=== PATIENT | female | born 1985 | race Caucasian/White ===

== ENCOUNTER 2016-04-17 09:31 | Emergency (ER) | payer MEDICAID ==
[~2016-04-17] VITALS: Wt 121.0 kg
[~2016-04-17 09:31] MED LIST: CEPH-443 PO; GUAI118L94 PO; HYDR-906 PO; IBUP-1542 PO; LORA-186 PO; ONDA4TAB8 PO; PREN-39 PO; RANI150T9 PO; SIME80TA PO; SODI44SP11 NASAL
[2016-04-17 09:44] VITALS: Wt 121.0 kg
[2016-04-17] MEDS ORDERED: D-ME473S18 PO (09:48)
--- NOTE | 2016-04-17 10:22 | ERD ---
DATE OF SERVICE: HISTORY OF PRESENT ILLNESS: The patient is a 30-year-old female coming in complaining of a dry coug h for 1 week. The patient has positive sick contacts at home, her family has similar symptoms. No fevers, no pleuritic chest pain, no hemoptysis, no leg swelling. She is not taking medications for her symptoms. Has a mild runny nose, no sore throat. PAST MEDICAL HISTORY: Denies medical problems. ALLERGIES, MEDICATIONS: Denies SURGICAL HISTORY: . SOCIAL HISTORY: Denies. REVIEW OF SYSTEMS: A 12-point review of systems was done. Refer to HPI for positives, all other sy stems negative. PHYSICAL EXAMINATION VITAL SIGNS: Temperature 98.4, pulse 101, blood pressure is 117/92, respiratory 18, O2 saturation 9 8% on room air. Pain intensity is 0/10. GENERAL: The patient is well-appearing, well-nourished, no acute distress. CHEST: Clear to auscultation bilaterally. There are no rales, wheezes or rhonchi. HEART: Regular rate and rhythm. No murmurs, clicks, rubs or gallops. No S3 or S4. HEENT: Atraumatic. Conjunctivae are pink. Pupils equal, round, and reactive to light. There is no s cleral icterus. Tympanic membranes clear bilaterally. Oropharynx clear. No nystagmus or photophobia . ABDOMEN: Soft, nontender and nondistended. Good bowel sounds. No rebound or guarding. No gross calixto tonitis. No gross organomegaly or masses. No Guthrie sign or McBurney point tenderness. SKIN: There is no apparent rash or petechia. The skin is warm and dry. BACK: No midline or flank tenderness. DIAGNOSIS: Cough, likely viral. MEDICAL DECISION MAKING: I have low suspicion for pneumonia as patient's breath sounds are within n ormal limits. The patient's vital signs are stable. The patient is nontoxic appearing. Low suspic ion for pneumonia as patient has breath sounds heard in all lung oconnor. The patient is not complai suzanna of shortness of breath. I have low suspicion for PE. The patient does not have pleuritic ches t pain, no risk factors and the exam is nonconcerning. I did not feel there was indication for bloo d work or imaging. I did not feel there was indication for antibiotic treatment. The patient likel y has viral etiology. DISCHARGE: The patient is discharged stable. The patient given prescription for promethazine and t old to follow up with primary care within 1 to 2 days for reevaluation. The patient was told if sym ptoms progress or worsen to return to the ER. All other questions answered at time of discharge. D ischarge summary given at the time of departure. The patient understood and complied with plan. Dictated By: SHEKHAR PICHARDO PA for MAIDA VELEZ/SUZETTE Conf#: [id number] DID#: [id number]
== END 2016-04-17 10:06 | disposition home or self-care (01) ==
LOC: FTE 09:31
DX: R05 Cough (principal)
CPT/HCPCS: 99283

== ENCOUNTER 2016-09-15 17:29 | Emergency (ER) | payer MEDICAID ==
[~2016-09-15] VITALS: Ht 160 cm; Wt 160.5 kg
[~2016-09-15 17:29] MED LIST changes: +D-ME473S18 PO
[2016-09-15 17:34] VITALS: Ht 160 cm; Wt 160.5 kg
--- NOTE | 2016-09-15 18:24 | ERA ---
ER Documentation Chief Complaint Date/Time DATE: 09/15/16 TIME: 18:19 Chief Complaint AP X 3 DAYS HPI This is a morbidly obese 30-year-old female presenting with a chief complaint of suprapubic pain 3 days. Patient never had symptoms like this before. Patient denies any previous urinary tract infections. Patient denies fevers, back pain, flank pain, hematuria, dysuria, foul odor, vaginal discharge, sexual partners or taking any medications to relieve the pain. Patient denies any alleviating/aggravating factors. Describes no other associated manifestations. Medical conditions include history of hypertension. Patient is also complaining of a "right lump looking thing on the side of my stuff". Patient is referring to her vaginal area where she was pointing and describes a red, tender area that is roughly the size of a golf ball. Patient denies any sexual activity, discharge, aggravating/relieving factors, or similar symptoms in the past. Patient denies recent travel, change in medications, recent antibiotics, recent hospitalization, diarrhea, constipation. Vaccination status is up-to-date. ROS All systems reviewed and are negative except as per history of present illness. Medications Home Meds Active Scripts Dextromethorphan Hb-Promethazine Hcl (Promethazine DM Syrup) 473 Ml Syrup, 5 ML PO Q6H Y for COUGH, #4 OZ Prov:JOSEPH PICHARDO PA-C 04/17/16 Cephalexin* (Keflex*) 500 Mg Capsule, 500 MG PO BID for 10 Days, CAP Prov:CARMEN ARAYA PA-C 02/26/16 Simethicone* (Anti-Gas/80*) 80 Mg Tab.chew, 80 MG PO Q6H Y for DISTENSION/GAS/ BLOATING for 7 Days, TAB.CHEW Prov:CARMEN ARAYA PA-C 02/26/16 Ibuprofen* (Motrin*) 600 Mg Tab, 600 MG PO Q6H Y for PAIN for 3 Days, TAB Prov:CARMEN ARAYA PA-C 02/26/16 Ranitidine Hcl* (Zantac*) 150 Mg Tablet, 150 MG PO BID Y for EPIGASTRIC PAIN, # 30 TAB Prov:CARMEN ARAYA PA-C 02/26/16 Hydrocodone/Acetaminophen ([place] 5-325 Tablet) 1 Each Tablet, 1 TAB PO Q6H Y for PAIN, #7 TAB Prov:CARMEN ARAYAC 02/26/16 Ondansetron Hcl* (Zofran*) 4 Mg Tablet, 4 MG PO Q6H for NAUSEA AND/OR VOMITING, #30 TAB Prov:CARMEN ARAYA PA-C 02/26/16 Sodium Chloride (Saline Nasal [place]) 45 Ml [place], 2 SPRAYS NASAL Q2H Y for NASAL CONGESTION, #1 BOTTLE Prov:MALENA CAMEJO CONTACT MANAGER 05/09/15 Guaifenesin-Codeine Phosphate* (Guaifenesin* with Codeine Liq) 120 Ml Liquid, 5 ML PO QHS for COUGH, #120 ML Prov:MALENA CAMEJO CONTACT MANAGER 05/09/15 Loratadine* (Claritin*) 10 Mg Tablet, 10 MG PO DAILY, #20 TAB Prov:MALENA CAMEJO CONTACT MANAGER 05/09/15 Reported Medications Vits W-Ca,Fe,Fa(<1MG) ( Vitamins) 1 Tab Tablet, 1 TAB PO DAILY 07/25/14 Allergies Allergies: Coded Allergies: No Known Allergy (Unverified , 07/25/14) PMhx/Soc History of Surgery: Yes (,Cholecystectomy) Anesthesia Reaction: No Hx Neurological Disorder: No Hx Respiratory Disorders: No Hx Cardiac Disorders: Yes (HTN) Hx Psychiatric Problems: No Hx Miscellaneous Medical Probl: Yes Hx Alcohol Use: No Hx Substance Use: No Hx Tobacco Use: No Smoking Status: Never smoker Physical Exam Vitals Vital Signs Date Time Temp Pulse Resp B/P Pulse Ox O2 Delivery O2 Flow Rate FiO2 09/15/16 17:34 98.1 79 18 150/79 99 Physical Exam Const: Morbidly obese 30-year-old female in no acute distress Head: Atraumatic Eyes: Normal Conjunctiva ENT: Normal External Ears, Nose and Mouth. Neck: Full range of motion..~ No meningismus. Resp: Clear to auscultation bilaterally Cardio: Regular rate and rhythm, no murmurs Abd: Moderate suprapubic tenderness. Soft, non tender, non distended. Normal bowel sounds Skin: Tender slightly raised indurated fluctuant lesion on the right upper thigh with the lateral border encroaching on the labia majora with a diameter of 10 cm. A 5 cm diameter tender fluctuant slightly raised at the center lesion on left upper thigh. Lesions are most consistent with abscesses. No petechiae or rashes Back: No CVA tenderness. No midline or flank tenderness Ext: No cyanosis, or edema Neur: Awake and alert Psych: Normal Mood and Affect Result Diagram: 09/15/16215209/15/162152 Results 24 hrs Laboratory Tests Test 09/15/16 18:53 09/15/16 21:53 Bedside Urine pH (LAB) 6.0 Bedside Urine Protein (LAB) 3+ Bedside Urine Glucose (UA) Negative Bedside Urine Ketones (LAB) Negative Bedside Urine Blood 2+ Bedside Urine Nitrite (LAB) Negative Bedside Urine Leukocyte Esterase (L Negative White Blood Count 11.510^3/ul Red Blood Count 4.4110^6/ul Hemoglobin 11.0g/dl Hematocrit 35.7% Mean Corpuscular Volume 81.0fl Mean Corpuscular Hemoglobin 24.9pg Mean Corpuscular Hemoglobin Concent 30.8g/dl Red Cell Distribution Width 14.7% Platelet Count 39641^3/UL Mean Platelet Volume 10.7fl Neutrophils % 62.1% Lymphocytes % 31.8% Monocytes % 3.7% Eosinophils % 1.8% Basophils % 0.3% Nucleated Red Blood Cells % 0.0/100WBC Neutrophils # 7.110^3/ul Lymphocytes # 3.710^3/ul Monocytes # 0.410^3/ul Eosinophils # 0.210^3/ul Basophils # 0.010^3/ul Nucleated Red Blood Cells # 0.010^3/ul Sodium Level 137mmol/L Potassium Level 4.4mmol/L Chloride Level 102mmol/L Carbon Dioxide Level 27mmol/L Anion Gap 12 Blood Urea Nitrogen 10mg/dl Creatinine 0.95mg/dl Glucose Level 101mg/dl Calcium Level 10.0mg/dl Current Medications Medications (Trade) Dose Ordered Sig/Luana Route PRN Reason Start Time Stop Time Status Last Admin Dose Admin Lidocaine (Xylocaine 2% (Mdv) 20 ml) 20 ml ONCE ONCE INJ 09/15/16 19:30 09/15/16 19:31 DC Procedures/MDM Patient was evaluated and worked up for suprapubic discomfort as described in history and physical examination as well as external vaginal "lump". Patient's lump is most consistent with abscess. Abscess was incised and drained using 6 mL of lidocaine on both lesions. 1 cm horizontal incision was made in each lesion. 3-5 mL of purulent fluid was drained from each lesion. There are no complications in either procedure. Patient was neurovascularly intact before and after the procedure. Patient denied any pain medications in the ED. the workup included urine dip to evaluate for infection and urine test to ensure no possible . Urine was negative. Further workup was obtained including labs and ultrasound. Ultrasound was read by the radiologist given the following impression: IMPRESSION: Normal endometrium. IUD within the endometrium. The most likely current diagnosis is gastritis. The treatment plan will thus include Bactrim and Keflex for skin infection and Pepcid for likely gastritis. At this time I do not suspect ovarian torsion, tubo-ovarian abscess, mechanical obstruction, ectopic , hernia, appendicitis, intestinal ischemia, PID, AAA, or diverticulitis. On repeat exam, the abdomen unchanged. The patient is well appearing, and tolerates PO. I have spoke with the patient regarding their condition and future management. They have verbally responded that they understand their status and treatment plan. Patient has verbally acknowledged to follow-up if symptoms change, worsen or persist. The patients vitals are stable, and their current condition is appropriate for discharge. The patient will be given discharge instructions with return precautions. Departure Diagnosis: Primary Impression: Cutaneous abscess of groin Additional Impression: Gastritis Qualified Code: K29.00 - Acute gastritis without hemorrhage, unspecified gastritis type Condition: Stable Additional Instructions: Follow up with your PCP within the next 1-3 days for a more thorough evaluation and a possible referral to a specialist. Return the the emergency department immediately if symptoms worsen or change. If you have any questions regarding medications, ask your pharmacist or us before you leave. If any adverse reactions occur while taking your medications, discontinue the treatment and return to the emergency department immediately. Take your medications as directed, and complete the entire course of treatment. DAVID RYAN PA-C Sep 15, 2016 18:24
[2016-09-15 18:49] LABS: URINE BLOOD (Dip) POC 2+ (NEGATIVE)
[2016-09-15] MEDS ORDERED: LIDOCAINE 2% (MDV) 20 ML INJ INJ ONE (19:30)
[2016-09-15 22:10] LABS: ADD SCAN DIFF NO
[2016-09-15 22:13] LABS: BASOPHILS % 0.3 % (0.0-2.0); EOSINOPHILS # 0.2 10^3/ul (0.0-0.5); EOSINOPHILS % 1.8 % (0.0-7.0); HEMATOCRIT 35.7 % (37.0-47.0); LYMPHOCYTES # 3.7 10^3/ul (0.8-2.9); LYMPHOCYTES % 31.8 % (15.0-51.0); MEAN CORPUSCULAR HEMOGLOBIN 24.9 pg (29.0-33.0); MEAN CORPUSCULAR HGB CONC 30.8 g/dl (32.0-37.0); MEAN PLATELET VOLUME 10.7 fl (7.4-10.4); MONOCYTE # 0.4 10^3/ul (0.3-0.9); MONOCYTES % 3.7 % (0.0-11.0); NEUTROPHIL # 7.1 10^3/ul (1.6-7.5); NEUTROPHILS % 62.1 % (39.0-77.0); PLATELET COUNT 388 10^3/UL (140-415); RED BLOOD COUNT 4.41 10^6/ul (4.20-5.40); RED CELL DISTRIBUTION WIDTH 14.7 % (11.5-14.5); WHITE BLOOD COUNT 11.5 10^3/ul (4.8-10.8)
[2016-09-15 22:31] LABS: CREATININE 0.95 mg/dl (0.44-1.00); POTASSIUM 4.4 mmol/L (3.5-5.1)
--- NOTE | 2016-09-15 23:17 | RADRPT ---
PROCEDURE: Ultrasound of the pelvis. CLINICAL INDICATION: Pain TECHNIQUE: Transabdominal and transvaginal ultrasound of the pelvis was performed to better evalua te the pelvic viscera. COMPARISON: No pertinent prior examinations were submitted for comparison. FINDINGS: LAST MENSTRUAL PERIOD: Unavailable UTERUS: Size: 8.6 x 5.1 x 7 cm. The uterine texture is homogeneous. The endometrium measures 9.4 mm which is within normal limits. An IUD is noted within the uterus. RIGHT OVARY: Size: 2.9 x 2.1 x 2.7 cm. No ovarian lesion or cyst is identified.Normal Doppler flow is noted to th e right ovary. LEFT OVARY: The ovary is not visualized. No adnexal masses are seen. CUL-DE-SAC: There is no abnormal free fluid. IMPRESSION: Normal endometrium. IUD within the endometrium. RPTAT: HIKT .Magno Verduzco MD, Date Time Electronically viewed and signed by .Magno Verduzco MD, on 09/15/2016 23:16 .T/
[2016-09-15] MEDS ORDERED: FAMO20TA18 PO (23:54)
[2016-09-16 00:01] VITALS: BP 144/94; PULSE 86; RESP 20; TEMP 98.6
== END 2016-09-16 00:03 | disposition home or self-care (01) ==
LOC: FTE 17:29
DX: L02.214 Cutaneous abscess of groin (principal); K29.00 Acute gastritis without bleeding; I10 Essential (primary) hypertension
CPT/HCPCS: 10060; 76830; 76856; 80048; 81003; 85025; Z7502; Z7610

== ENCOUNTER 2016-12-09 22:03 | Emergency (ER) | payer MEDICAID ==
[~2016-12-09] VITALS: Ht 154.9 cm; Wt 163.0 kg
[~2016-12-09 22:03] MED LIST changes: +FAMO20TA18 PO
[2016-12-09 22:12] VITALS: Ht 154.9 cm; Wt 163.0 kg
--- NOTE | 2016-12-09 22:17 | ERA ---
ER Documentation Chief Complaint Date/Time DATE: 12/09/16 TIME: :17 Chief Complaint Pt reports CP for 2 week and L arm pain HPI The patient is a 31-year-old female, presenting with intermittent left-sided chest discomfort for with left arm discomfort. She had similar symptoms previously where she was under a lot of stress, the pain is worse with movement , better with massaging. She denies fever, chills, chest pain with exertion/ vomiting/diaphoresis. She denies abdominal pain, vomiting, dysuria, diarrhea, leg pain, recent traveling, she is not on control pill, she does not smoke nor drink. She has increased stress in her life at this time Past medical history: Hypertension, however she is noncompliant with her medication Past medical history: , cholecystectomy ROS All systems reviewed and are negative except as per history of present illness. Medications Home Meds Active Scripts Ibuprofen* (Motrin*) 600 Mg Tab, 600 MG PO Q6, #30 TAB Prov:DAVID ROLDAN MD 12/10/16 Ibuprofen* (Motrin*) 600 Mg Tab, 600 MG PO Q6, #20 TAB Prov:DAVID ROLDAN MD 12/10/16 Discontinued Reported Medications Vits W-Ca,Fe,Fa(<1MG) ( Vitamins) 1 Tab Tablet, 1 TAB PO DAILY 07/25/14 Discontinued Scripts Famotidine* (Famotidine*) 20 Mg Tablet, 20 MG PO BID, #60 TAB Prov:DAVID RYAN PA-C 09/15/16 Dextromethorphan Hb-Promethazine Hcl (Promethazine DM Syrup) 473 Ml Syrup, 5 ML PO Q6H Y for COUGH, #4 OZ Prov:JOSEPH PICHARDO PA-C 04/17/16 Cephalexin* (Keflex*) 500 Mg Capsule, 500 MG PO BID for 10 Days, CAP Prov:CARMEN ARAYA PA-C 02/26/16 Simethicone* (Anti-Gas/80*) 80 Mg Tab.chew, 80 MG PO Q6H Y for DISTENSION/GAS/ BLOATING for 7 Days, TAB.CHEW Prov:CARMEN ARAYA PA-C 02/26/16 Ibuprofen* (Motrin*) 600 Mg Tab, 600 MG PO Q6H Y for PAIN for 3 Days, TAB Prov:ARAYA,CARMEN M. PA-C 02/26/16 Ranitidine Hcl* (Zantac*) 150 Mg Tablet, 150 MG PO BID Y for EPIGASTRIC PAIN, # 30 TAB Prov:CARMEN ARAYA PA-C 02/26/16 Hydrocodone/Acetaminophen ([place] 5-325 Tablet) 1 Each Tablet, 1 TAB PO Q6H Y for PAIN, #7 TAB Prov:CARMEN ARAYA PA-C 02/26/16 Ondansetron Hcl* (Zofran*) 4 Mg Tablet, 4 MG PO Q6H for NAUSEA AND/OR VOMITING, #30 TAB Prov:CARMEN ARAYA PA-C 02/26/16 Sodium Chloride (Saline Nasal [place]) 45 Ml [place], 2 SPRAYS NASAL Q2H Y for NASAL CONGESTION, #1 BOTTLE Prov:MALENA CAMEJO. TRUCK LEASING MANAGER 05/09/15 Guaifenesin-Codeine Phosphate* (Guaifenesin* with Codeine Liq) 120 Ml Liquid, 5 ML PO QHS for COUGH, #120 ML Prov:MALENA CAMEJO. TRUCK LEASING MANAGER 05/09/15 Loratadine* (Claritin*) 10 Mg Tablet, 10 MG PO DAILY, #20 TAB Prov:MALENA CAMEJO. TRUCK LEASING MANAGER 05/09/15 Allergies Allergies: Coded Allergies: No Known Allergy (Unverified , 07/25/14) PMhx/Soc History of Surgery: Yes (,Cholecystectomy) Anesthesia Reaction: No Hx Neurological Disorder: No Hx Respiratory Disorders: No Hx Cardiac Disorders: Yes (HTN) Hx Psychiatric Problems: No Hx Miscellaneous Medical Probl: Yes Hx Alcohol Use: No Hx Substance Use: No Hx Tobacco Use: No Physical Exam Vitals Vital Signs Date Time Temp Pulse Resp B/P Pulse Ox O2 Delivery O2 Flow Rate FiO2 12/10/16 02:05 78 18 104/57 100 Room Air 12/09/16 23:59 77 20 114/56 98 Room Air 12/09/16 22:12 99.6 81 20 134/81 98 Physical Exam Const: No acute distress. Head: Atraumatic. Eyes: Normal Conjunctiva. ENT: Normal External Ears, Nose and Mouth. Neck: Full range of motion. No meningismus. Resp: Clear to auscultation bilaterally. Cardio: Regular rate and rhythm.Mild left chest discomfort with palpitation Abd: Soft, non distended, normal bowel sounds, non tender. Skin: No petechiae or rashes. Back: No midline or flank tenderness. Ext: No cyanosis, or edema. Neur: Awake and alert. No focal deficit Psych: Normal Mood and Affect. Result Diagram: 12/09/16 2240 12/09/16 2240 Results 24 hrs Laboratory Tests Test 12/09/16 22:33 12/09/16 22:40 12/10/16 01:10 Bedside Urine pH (LAB) 6.0 Bedside Urine Protein (LAB) 3+ Bedside Urine Glucose (UA) Negative Bedside Urine Ketones (LAB) Negative Bedside Urine Blood 3+ Bedside Urine Nitrite (LAB) Negative Bedside Urine Leukocyte Esterase (L Trace White Blood Count 10.010^3/ul Red Blood Count 4.2210^6/ul Hemoglobin 10.4g/dl Hematocrit 34.2% Mean Corpuscular Volume 81.0fl Mean Corpuscular Hemoglobin 24.6pg Mean Corpuscular Hemoglobin Concent 30.4g/dl Red Cell Distribution Width 15.0% Platelet Count 37886^3/UL Mean Platelet Volume 11.2fl Neutrophils % 52.7% Lymphocytes % 39.2% Monocytes % 5.6% Eosinophils % 1.9% Basophils % 0.3% Nucleated Red Blood Cells % 0.0/100WBC Neutrophils # 5.310^3/ul Lymphocytes # 3.910^3/ul Monocytes # 0.610^3/ul Eosinophils # 0.210^3/ul Basophils # 0.010^3/ul Nucleated Red Blood Cells # 0.010^3/ul D-Dimer 789.22ng/ml D-Dimer Comment Sodium Level 138mmol/L Potassium Level 3.8mmol/L Chloride Level 105mmol/L Carbon Dioxide Level 26mmol/L Anion Gap 11 Blood Urea Nitrogen 15mg/dl Creatinine 1.04mg/dl Glucose Level 82mg/dl Calcium Level 9.3mg/dl Troponin I < 0.012ng/ml < 0.012ng/ml Creatine Kinase 23IU/L Creatine Kinase Index 1.0 Creatinine Kinase MB (Mass) < 0.22ng/ml Current Medications Medications (Trade) Dose Ordered Sig/Luana Route PRN Reason Start Time Stop Time Status Last Admin Dose Admin Sodium Chloride (NS) 1,000 ml @ 1,000 mls/hr Q1H ONCE IV 12/10/16 00:00 12/10/16 00:59 DC 12/09/16 23:38 Ketorolac Tromethamine (Toradol) 30 mg ONCE STAT IV 12/09/16 23:39 12/09/16 23:40 DC 12/09/16 23:43 IV Flush 10 ml 10 ml STK-MED ONCE .ROUTE 12/09/16 23:59 12/10/16 00:00 DC 12/10/16 00:46 Sodium Chloride (NS) 100 ml @ ud STK-MED ONCE .ROUTE 12/09/16 23:59 12/10/16 00:00 DC 12/10/16 00:47 Iodixanol (Visipaque Locm) 100 ml STK-MED ONCE .ROUTE 12/09/16 23:59 12/10/16 00:00 DC 12/10/16 00:47 Iodixanol (Visipaque Locm) 50 ml STK-MED ONCE .ROUTE 12/09/16 23:59 12/10/16 00:00 DC 12/10/16 00:47 Morphine Sulfate (morphine) 2 mg ONCE ONCE IV 12/10/16 02:00 12/10/16 02:01 DC 12/10/16 02:02 Ondansetron HCl (Zofran Inj) 4 mg ONCE STAT IV 12/10/16 01:42 12/10/16 01:43 DC 12/10/16 02:02 Procedures/MDM EK hrs. Read by emergency physician Rate/Rhythm: Normal Sinus Rhythm 73 beats/min QRS, ST, T-waves: No ST elevation, no T inversion, Sinus arrhythmia Impression: Abnormal EKG EK hrs. Read by emergency physician Rate/Rhythm: Sinus bradycardia 58 beats/min QRS, ST, T-waves: No ST elevation, no T inversion, Sinus arrhythmia Impression: Abnormal EKG [place] [id number] Radiology Main Line: [phone] DIAGNOSTIC IMAGING REPORT Patient: APPLE MORROW : 1985 Age: 31 Sex: F MR #: [id number] DOS: 12/09/16 2334 Ordering MD: DAVID ROLDAN MD Location: E/R Room/Bed: PROCEDURE: CTA CHEST WITH CONTRAST CLINICAL INDICATION: 31-year-old female with shortness of breath. TECHNIQUE: The study was performed utilizing a [employer] VCT 64-slice CT scanner. Direct axial sections were obtained from the thoracic inlet through the chest to the upper abdomen with a bolus injection of 150 cc of Visipaque 320 nonionic contrast material. Sagittal, coronal and maximal intensity projections re-formations were obtained. One or more of the following dose reduction techniques were utilized: automated exposure control, adjustment of the mA and/or kV according to patient's size or use of iterative reconstruction technique. The images were reviewed on a PACS workstation. CTD/vol = 94.1 mGy; Total Exam DLP = 918.0 mGy-cm. COMPARISON: None. FINDINGS: There is soft tissue within the anterior mediastinum consistent with residual thymic tissue. The aorta is without aneurysmal dilatation or dissection. There are small lymph nodes seen within the mediastinum which are not pathologic by size criteria. The central pulmonary arteries are without evidence for filling defect to suggest pulmonary embolus or thrombus. There is incomplete opacification of the distal pulmonary arterial branches. Minimal scarring is seen within the lingula. There is no evidence for an infiltrate. No abnormal soft tissue masses or nodular densities are visualized. The osseous structures are unremarkable. Scans through the upper abdomen reveals that the upper liver has diffuse decreased density consistent with fatty infiltration.. Surgical clips are present within the gallbladder fossa from prior cholecystectomy. The adrenal glands have a normal appearance. The upper kidneys are functional and are without evidence for obstruction. IMPRESSION: 1. No CTA evidence for thoracic aortic aneurysm/dissection or central pulmonary embolus. 2. Minimal scarring within the lingula. 3. Hepatic steatosis. 4. Status post cholecystectomy. .Ramin Marsh MD, MD Date Time Electronically viewed and signed by .Ramin Marsh MD, on 12/10/2016 01:38 .M/ CC: DAVID ROLDAN MD [facility] [id number] [place] [id number] Radiology Main Line: [phone] DIAGNOSTIC IMAGING REPORT Patient: PAPLE MORROW : 1985 Age: 31 Sex: F MR #: [id number] DOS: 12/09/16 2241 Ordering MD: DAVID ROLDNA MD Location: E/R Room/Bed: PROCEDURE: XR Chest. CLINICAL INDICATION: Chest pain. TECHNIQUE: Single frontal view of the chest COMPARISON: None. FINDINGS: The cardiomediastinal silhouette is within normal limits. The patient body habitus and hypoinflated lungs accentuate pulmonary vascular markings. Mild atelectasis at the left lung base. The lungs are otherwise clear. No signs of pleural fluid or pneumothorax are seen. The osseous structures and soft tissues are unremarkable. IMPRESSION: Mild atelectasis at the left lung base. RPTAT: [facility] Physician Cesar Date Time Electronically viewed and signed by Physician Cesar on 12/09/2016 23:06 RS/ CC: DAVID ROLDAN MD MEDICAL MAKING DECISION: The patient is a 31-year-old female, presenting with acute chest pain of unclear etiology. She was treated with 1 L normal saline for clinical dehydration, Toradol 30 mg IV and morphine 2 mg IV for pain and Zofran 4 mg IV for now sent with good response. The differential diagnoses considered include but are not limited to acute coronary syndrome, acute myocardial infarction, pericarditis, pulmonary embolism , aortic dissection, pneumonia, pleural effusion, pneumothorax, GERD, chest wall pain, anxiety, cervical radiculopathy. Departure Diagnosis: Primary Impression: Chest pain Additional Impression: Anemia Condition: Good Comments The patient presents with chest pain and I considered pulmonary embolism, aortic dissection, pneumothorax among other diagnoses. Evaluation for acute coronary syndrome was performed. The HEART score (www.mdcalc.com) was utilized for risk stratification and found to be <= 3. Repeat EKG and troponin @ 3 hours were unchanged. Based on this evaluation the patients risk of major adverse cardiac events is <1%. Shared decision making occurred with patient and the decision has been made to discharge the patient for outpatient evaluation and functional study within 72 hours. I discussed the findings with the patient. I advised the patient to follow-up with the primary physician in about 1-2 days, sooner if needed and return if any concern. DAVID ROLDAN MD Dec 09, 2016 22:17
[2016-12-09 22:26] LABS: URINE BLOOD (Dip) POC 3+ (NEGATIVE)
[2016-12-09 22:58] LABS: BASOPHILS % 0.3 % (0.0-2.0); EOSINOPHILS # 0.2 10^3/ul (0.0-0.5); EOSINOPHILS % 1.9 % (0.0-7.0); HEMATOCRIT 34.2 % (37.0-47.0); HEMOGLOBIN 10.4 g/dl (12.0-16.0); LYMPHOCYTES # 3.9 10^3/ul (0.8-2.9); LYMPHOCYTES % 39.2 % (15.0-51.0); MEAN CORPUSCULAR HEMOGLOBIN 24.6 pg (29.0-33.0); MEAN CORPUSCULAR HGB CONC 30.4 g/dl (32.0-37.0); MEAN PLATELET VOLUME 11.2 fl (7.4-10.4); MONOCYTE # 0.6 10^3/ul (0.3-0.9); MONOCYTES % 5.6 % (0.0-11.0); NEUTROPHIL # 5.3 10^3/ul (1.6-7.5); NEUTROPHILS % 52.7 % (39.0-77.0); PLATELET COUNT 356 10^3/UL (140-415); RED BLOOD COUNT 4.22 10^6/ul (4.20-5.40)
--- NOTE | 2016-12-09 23:06 | RADRPT ---
PROCEDURE: XR Chest. CLINICAL INDICATION: Chest pain. TECHNIQUE: Single frontal view of the chest COMPARISON: None. FINDINGS: The cardiomediastinal silhouette is within normal limits. The patient body habitus and hypoinflated lungs accentuate pulmonary vascular markings. Mild atelectasis at the left lung base. The lungs are otherwise clear. No signs of pleural fluid or pneumothorax are seen. The osseous structures and soft tissues are unremarkable. IMPRESSION: Mild atelectasis at the left lung base. RPTAT: [facility] Physician Cesar Date Time Electronically viewed and signed by Physician Cesar on 12/09/2016 23:06 RS/
[2016-12-09 23:17] LABS: D-DIMER 789.22 ng/ml (<460)
[2016-12-09 23:20] LABS: ANION GAP 11 (8-16); BLOOD UREA NITROGEN 15 mg/dl (7-20); CALCIUM 9.3 mg/dl (8.4-10.2); CARBON DIOXIDE 26 mmol/L (21-31); CHLORIDE 105 mmol/L (97-110); CREATININE 1.04 mg/dl (0.44-1.00); GLUCOSE 82 mg/dl (70-220); POTASSIUM 3.8 mmol/L (3.5-5.1); SODIUM 138 mmol/L (135-144)
[2016-12-09 23:34] LABS: TROPONIN-I < 0.012 ng/ml (0.00-0.12)
[2016-12-09] MEDS ORDERED: KETOROLAC 30 MG INJ IV STA (23:39)
[2016-12-09] MEDS ORDERED: SOD CHLORIDE 0.9% 100 ML ONE (23:59)
[2016-12-09] MEDS ORDERED: IODIXANOL LOCM 50 ML BTL ONE (23:59)
[2016-12-09] MEDS ORDERED: IODIXANOL LOCM 100 ML BTL ONE (23:59)
[2016-12-10] MEDS ORDERED: SOD CHLORIDE 0.9% 1,000 ML IV ONE
--- NOTE | 2016-12-10 01:38 | RADRPT ---
PROCEDURE: CTA CHEST WITH CONTRAST CLINICAL INDICATION: 31-year-old female with shortness of breath. TECHNIQUE: The study was performed utilizing a [employer] VCT 64-slice CT scanner. Direct axi al sections were obtained from the thoracic inlet through the chest to the upper abdomen with a bolu s injection of 150 cc of Visipaque 320 nonionic contrast material. Sagittal, coronal and maximal int ensity projections re-formations were obtained. One or more of the following dose reduction techniqu es were utilized: automated exposure control, adjustment of the mA and/or kV according to patient's size or use of iterative reconstruction technique. The images were reviewed on a PACS workstation. CTD/vol = 94.1 mGy; Total Exam DLP = 918.0 mGy-cm. COMPARISON: None. FINDINGS: There is soft tissue within the anterior mediastinum consistent with residual thymic tissue. The aor ta is without aneurysmal dilatation or dissection. There are small lymph nodes seen within the media stinum which are not pathologic by size criteria. The central pulmonary arteries are without evidenc e for filling defect to suggest pulmonary embolus or thrombus. There is incomplete opacification of the distal pulmonary arterial branches. Minimal scarring is seen within the lingula. There is no tamara dence for an infiltrate. No abnormal soft tissue masses or nodular densities are visualized. The oss eous structures are unremarkable. Scans through the upper abdomen reveals that the upper liver has diffuse decreased density consisten t with fatty infiltration.. Surgical clips are present within the gallbladder fossa from prior ariel cystectomy. The adrenal glands have a normal appearance. The upper kidneys are functional and are wi thout evidence for obstruction. IMPRESSION: 1. No CTA evidence for thoracic aortic aneurysm/dissection or central pulmonary embolus. 2. Minimal scarring within the lingula. 3. Hepatic steatosis. 4. Status post cholecystectomy. .Ramin Marsh MD, MD Date Time Electronically viewed and signed by .Ramin Marsh MD, on 12/10/2016 01:38 .Danette/
[2016-12-10] MEDS ORDERED: ONDANSETRON 4 MG INJ IV STA (01:42)
[2016-12-10 01:55] LABS: CREATINE KINASE 23 IU/L (23-200)
[2016-12-10] MEDS ORDERED: morphine 2 MG INJ IV ONE (02:00)
[2016-12-10 02:12] LABS: CK-MB < 0.22 ng/ml (0.0-2.4); TROPONIN-I < 0.012 ng/ml (0.00-0.12)
[2016-12-10] MEDS ORDERED: IBUP-1542 PO (02:32)
[2016-12-10 02:48] VITALS: BP 110/47; PULSE 70; RESP 18
--- NOTE | 2016-12-11 13:59 | RADRPT ---
PROCEDURE: ULTRASOUND BILATERAL LOWER EXTREMITY VENOUS CLINICAL INDICATION: 31-year-old female with lower extremity swelling. TECHNIQUE: Multiple sonographic images of the bilateral lower extremity deep venous system was obt ained utilizing grayscale, color-flow, compressive sonography and doppler imaging with augmentation. The images were reviewed on a PACS workstation. COMPARISON: None. FINDINGS: There is normal compressibility and flow within the bilateral common femoral, deep femoral, superfic ial femoral, popliteal, posterior tibial and left peroneal vein. The right peroneal vein was not abl e to be visualized. IMPRESSION: No sonographic evidence for deep venous thrombosis. .Ramin Marsh MD, MD Date Time Electronically viewed and signed by .Ramin Marsh MD, MD on 12/10/2016 01:55 .Danette/
== END 2016-12-10 02:48 | disposition home or self-care (01) ==
LOC: E/R 22:03
DX: R07.9 Chest pain, unspecified (principal); D64.9 Anemia, unspecified; I10 Essential (primary) hypertension
CPT/HCPCS: 36415; 71010; 71275; 80048; 81003; 82550; 82553; 84484; 85025; 85378; 93005; 93970; 96374; 96375; J1885; J2270; J2405; J7030; Q9967; Z7502; Z7610

== ENCOUNTER 2017-02-19 10:33 | Emergency (ER) | payer MEDICAID ==
[~2017-02-19] VITALS: Ht 172.7 cm; Wt 147.2 kg
[~2017-02-19 10:33] MED LIST changes: -CEPH-443 PO; -D-ME473S18 PO; -FAMO20TA18 PO; -GUAI118L94 PO; -HYDR-906 PO; -LORA-186 PO; -ONDA4TAB8 PO; -PREN-39 PO; -RANI150T9 PO; -SIME80TA PO; -SODI44SP11 NASAL
[2017-02-19 10:37] VITALS: Ht 172.7 cm; Wt 147.2 kg
[2017-02-19] MEDS ORDERED: ALBUTEROL 0.083% (NEB) 2.5 MG/3 ML AMP HHN STA (10:50)
[2017-02-19] MEDS ORDERED: IPRATROPIUM (NEB) 0.5 MG/2.5 ML AMP HHN ONE (11:00)
[2017-02-19] MEDS ORDERED: predniSONE 20 MG TAB PO ONE (11:00)
[2017-02-19] MEDS ORDERED: PROMETHAZINE/CODEINE 5ML CUP PO ONE (11:30)
--- NOTE | 2017-02-19 11:56 | RADRPT ---
PROCEDURE: XR Chest. CLINICAL INDICATION: Cough TECHNIQUE: Single frontal view of the chest was obtained COMPARISON: None FINDINGS: The heart and mediastinum are within normal limits. The lungs are clear. There is no pleural effusion or pneumothorax. RPTAT: AA IMPRESSION: No acute disease. .Mars Moody MD, Date Time Electronically viewed and signed by .Mars Moody MD, on 02/19/2017 11:55 .S/
[2017-02-19] MEDS ORDERED: AZIT250T94 PO (12:00)
[2017-02-19] MEDS ORDERED: PROM5SYR2 PO (12:00)
--- NOTE | 2017-02-19 12:03 | ERD ---
ER Documentation Chief Complaint Chief Complaint cough x3 days, speaking full sentences HPI This 31-year-old female presents with cough for the last 3 days. She has a daughter at home with similar symptoms who is no history of fevers or productive cough. She denies any chest pain, vomiting, abdominal pain. She denies any nocturnal dyspnea or pedal edema. She has an additional complaint of itchy rash on her hands. 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 ROS All systems reviewed and are negative except as per history of present illness. Medications Home Meds Active Scripts Triamcinolone Acetonide (Triamcinolone Acetonide) 0.1% - 15 Gm Cream.gm., 1 APPLIC TOP QID for 7 Days, #1 TUB 30g Prov:JASPER MOTA MD 02/19/17 Promethazine HCl/Codeine (Prometh-Codein 6.25-10 mg/5 ml) 5 Ml Syrup, 5 ML PO QID for 5 Days 4 oz Prov:JASPER MOTA MD 02/19/17 Azithromycin* (Zithromax*) 250 Mg Tablet, 250 MG PO .ZPACK DIRECTED, #6 TAB TAKE 500 MG (2 TABS) THE FIRST DAY THEN 250 MG (1 TAB) DAYS 2-5 Prov:JASPER MOTA MD 02/19/17 Ibuprofen* (Motrin*) 600 Mg Tab, 600 MG PO Q6, #30 TAB Prov:DAVID ROLDAN MD 12/10/16 Ibuprofen* (Motrin*) 600 Mg Tab, 600 MG PO Q6, #20 TAB Prov:DAVID ROLDAN MD 12/10/16 Allergies Allergies: Coded Allergies: No Known Allergy (Unverified , 02/19/17) PMhx/Soc History of Surgery: Yes (, Gallstones) Anesthesia Reaction: No Hx Neurological Disorder: No Hx Respiratory Disorders: No Hx Cardiac Disorders: Yes (HTN) Hx Psychiatric Problems: No Hx Miscellaneous Medical Probl: No Hx Alcohol Use: No Hx Substance Use: No Hx Tobacco Use: No Physical Exam Vitals Vital Signs Date Time Temp Pulse Resp B/P Pulse Ox O2 Delivery O2 Flow Rate FiO2 02/19/17 11:07 77 17 96 21 02/19/17 10:37 98.8 77 18 136/78 97 Physical Exam Const: [] Alert, [id number]. Head: Atraumatic Eyes: Normal Conjunctiva ENT: Normal External Ears, Nose and Mouth. Neck: Full range of motion..~ No meningismus. No JVD. Resp: Clear to auscultation bilaterally. Noticeable coughing spells without rales, appreciable wheezing or retractions. Cardio: Regular rate and rhythm, no murmurs Abd: Soft, non tender, non distended. Normal bowel sounds Skin: No petechiae or purpura. There is excoriated macular papular rash on the palms webspaces small likely vesicles. Back: No midline or flank tenderness Ext: No cyanosis, or edema Neur: Awake and alert Psych: Normal Mood and Affect Results 24 hrs Current Medications Medications (Trade) Dose Ordered Sig/Luana Route PRN Reason Start Time Stop Time Status Last Admin Dose Admin Prednisone (Prednisone) 60 mg ONCE ONCE PO 02/19/17 11:00 02/19/17 11:01 DC 02/19/17 10:54 Albuterol (Proventil 0.083% (Neb)) 2.5 mg ONCE STAT N 02/19/17 10:50 02/19/17 10:52 DC 02/19/17 11:05 Ipratropium [place] (Atrovent 0.02% (Neb)) 0.5 mg ONCE ONCE N 02/19/17 11:00 02/19/17 11:01 DC 02/19/17 11:05 Promethazine HCl/ Codeine (Phenergan/ Codeine) 10 ml ONCE ONCE PO 02/19/17 11:30 02/19/17 11:31 DC 02/19/17 11:39 Procedures/MDM Patient was given albuterol treatment 1 for coughing spells. She had persistent cough. Chest X-ray 1V Interpreted by me: Soft Tissue: No acute abnormalities Bones: No acute abnormalities Mediastinum/Cardiac Silhouette/Lungs: [No acute abnormalities] impression- normal 1 view chest x-ray Patient is given promethazine with codeine 10 mils p.o. Patient presents with coughing spells for last 3 days without signs or symptoms of hypoxemia, signs to suggest CHF, PE pneumonia, additional emergent causes of presenting complaints. She will be treated empirically with Zithromax and promethazine codeine, primary care follow-up and return precautions. Rash on her hands appears to be dyshidrotic eczema and she will be treated with triamcinolone cream. The patient was stable with no new complaints during the ER course. Clinically, there is no current evidence to suggest meningitis, sepsis, acute abdomen, pneumonia, acute coronary syndrome, pulmonary embolism, or any other emergent condition appearing to require further evaluation or hospitalization. The patient should certainly return for any new or worsening symptoms per the aftercare instructions. They should otherwise follow-up with her primary care doctor for reevaluation this week. Departure Diagnosis: Primary Impression: Cough Condition: Stable Patient Instructions: Acute Bronchitis Additional Instructions: X-ray normal today. May be viral illness but will treat for infection. Recheck for new or worsening symptoms or primary care doctor. JASPER MOTA MD Feb 19, 2017 12:03
[2017-02-19] MEDS ORDERED: TRIA15CR55 TOP (12:06)
== END 2017-02-19 12:08 | disposition home or self-care (01) ==
LOC: FTE 10:33
DX: R05 Cough (principal); I10 Essential (primary) hypertension
CPT/HCPCS: 71010; 94664; J7512; Z7502; Z7610

== ENCOUNTER → 2017-10-15 | Emergency (ER) | END | disposition home or self-care (01) ==

== ENCOUNTER 2017-12-25 22:14 | Emergency (ER) | END 2017-12-26 05:52 | disposition home or self-care (01) ==

== ENCOUNTER 2018-12-10 18:48 | Emergency (ER) | payer MEDICAID ==
[~2018-12-10] VITALS: Ht 172.7 cm; Wt 170.0 kg
[~2018-12-10 18:48] MED LIST changes: +AZIT250T PO; +BEN25 PO; +DICY10CA40 PO; +HYDR-4011 PO; +ONDA4TAB14 PO; +PROM5SYR2 PO; +SUMA25TA34 PO; +TRIA15CR55 TOP
[2018-12-10 19:07] VITALS: Ht 172.7 cm; Wt 170.0 kg
[2018-12-10] MEDS ORDERED: KETOROLAC 30 MG INJ IV STA (19:58)
[2018-12-10] MEDS ORDERED: SOD CHLORIDE 0.9% 1,000 ML IV STA (19:58)
[2018-12-10] MEDS ORDERED: METOCLOPRAMIDE 10 MG INJ IV STA (19:58)
[2018-12-10 22:34] VITALS: BP 107/50; PULSE 75; RESP 18
== END 2018-12-10 22:38 | disposition home or self-care (01) ==
LOC: FTE 18:48
DX: R51 Headache (principal); I10 Essential (primary) hypertension
CPT/HCPCS: 81025; J1885; J2765; J7030; 96374; 96375